=== PATIENT | male | born 1985 | race Caucasian/White ===

== ENCOUNTER 2018-09-29 19:16 | Emergency (ER) | payer SELFPAY ==
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
[2018-09-29 19:28] VITALS: BP 127/82
[2018-09-29] MEDS ORDERED: Diphtheria,Pertussis(Acell),Tetanus Vaccine 0.5 ML Syringe IM ONE (19:32)
== END 2018-09-29 19:54 | disposition home or self-care (01) ==
LOC: MW.ED 19:16
DX: S01.01XA Laceration without foreign body of scalp, initial encounter (principal); Z23 Encounter for immunization; W22.8XXA Striking against or struck by other objects, initial encounter
CPT/HCPCS: 90471; 90715; 99283

== ENCOUNTER 2018-10-07 15:17 | Emergency (ER) | payer SELFPAY ==
[2018-10-07 15:47] VITALS: BP 117/74
== END 2018-10-07 15:50 | disposition left against medical advice (07) ==
LOC: MW.ED 15:17
DX: Z53.21 Procedure and treatment not carried out due to patient leaving prior to being seen by health care provider (principal)

== ENCOUNTER 2019-08-06 18:01 | Emergency (ER) | payer SELFPAY ==
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
[2019-08-06 19:15] VITALS: BP 125/77; PULSE 89
== END 2019-08-06 19:12 | disposition home or self-care (01) ==
LOC: MW.ED 18:01
DX: M25.531 Pain in right wrist (principal); Z91.018 Allergy to other foods; Z91.013 Allergy to seafood; V18.4XXA Pedal cycle driver injured in noncollision transport accident in traffic accident, initial encounter
CPT/HCPCS: 29125; 73100-26-RT; 73100-RT; 99283; 99284-25